=== PATIENT | female | born 1995 | race American Indian/Alaskan Native ===

== ENCOUNTER 2019-11-16 14:09 | Emergency (ER) | payer SELFPAY ==
--- NOTE | 2019-11-16 14:18 | Emergency Department Report ---
Chief Complaint: Dental/Oral Stated Complaint: TOOTH PAIN - HPI History of Present Illness: Ms. Dixon has impacted wisdom teeth which need to be removed. No infection. No facial or gum swelling. Frustrated that she can not get a referral to oral surgeon. Pain has improved with Naproxen. MSe complete MSE screening note: Focused history and physical exam performed. Due to findings the following was ordered: ED Disposition for MSE Clinical Impression: Pain, dental Disposition: Z MED SCREENING EXAM-LEFT Is pt being admited?: No Does the pt Need Aspirin: No Condition: Stable
== END 2019-11-16 14:20 | disposition left against medical advice (07) ==
LOC: ED 14:09
DX: K08.89 Other specified disorders of teeth and supporting structures (principal)
CPT/HCPCS: 99281

== ENCOUNTER 2021-05-14 11:55 | Emergency (ER) | payer OTHER ==
[2021-05-14 12:12] VITALS: BP 116/71
--- NOTE | 2021-05-14 12:41 | Emergency Department Report ---
ED Female HPI - General Chief complaint: Vaginal Bleeding Stated complaint: POSS MISCARRIAGE Time Seen by Provider: 05/14/21 12:33 Source: patient Mode of arrival: Ambulatory Limitations: No Limitations - History of Present Illness Initial comments: Patient is a 25-year-old female presents emergency room with complaints of concern for a miscarriage. She states last night that she wiped and she noticed a tissue-like substance on the toilet paper. She denies any vaginal bleeding, lower abdominal pain, cramping, back pain. She states that her last menstrual cycle was March 24, 2021. She states that this would be her first . She states that she took 6 at home test 2 weeks ago and reports it was positive. She states that she has not yet seen her [facility] but has an upcoming appointment later this week. She denies any fever, diarrhea, urinary symptoms. No past medical history. Allergy to penicillin. - Related Data Previous Rx's Medication Instructions Recorded Last Taken Type Ciprofloxacin HCl [Ciloxan] 2 drops OP Q6H #5 ml 03/18/21 Unknown Rx Ibuprofen [Motrin] 800 mg PO Q8HR PRN #30 tablet 03/18/21 Unknown Rx Allergies Allergy/AdvReac Type Severity Reaction Status Date / Time Penicillins Allergy Rash Verified 03/17/21 20:39 ED Review of Systems ROS: Stated complaint: POSS MISCARRIAGE Other details as noted in HPI Comment: All other systems reviewed and negative ED Past Medical Hx - Past Medical History Previous Medical History?: No - Surgical History Past Surgical History?: No - Social History Smoking Status: Never Smoker - Medications Home Medications: Home Medications Medication Instructions Recorded Confirmed Last Taken Type Ciprofloxacin HCl [Ciloxan] 2 drops OP Q6H #5 ml 03/18/21 Unknown Rx Ibuprofen [Motrin] 800 mg PO Q8HR PRN #30 tablet 03/18/21 Unknown Rx ED Physical Exam - General Limitations: No Limitations General appearance: alert, in no apparent distress - Head Head exam: Present: atraumatic, normocephalic - Eye Eye exam: Present: normal appearance - ENT ENT exam: Present: mucous membranes moist - Respiratory Respiratory exam: Present: normal lung sounds bilaterally. Absent: respiratory distress, wheezes, rales, rhonchi, stridor, chest wall tenderness, accessory muscle use, decreased breath sounds, prolonged expiratory - Cardiovascular Cardiovascular Exam: Present: regular rate, normal rhythm, normal heart sounds. Absent: systolic murmur, diastolic murmur, rubs, gallop - GI/Abdominal GI/Abdominal exam: Present: soft, normal bowel sounds. Absent: distended, tenderness, guarding, rebound, rigid - Neurological Exam Neurological exam: Present: alert, oriented X3 - Psychiatric Psychiatric exam: Present: normal affect, normal mood - Skin Skin exam: Present: warm, dry, intact ED Course Vital Signs 05/14/21 05/14/21 12:11 15:47 Temperature 97.8 F Pulse Rate 80 78 Respiratory 18 16 Rate Blood Pressure 116/71 O2 Sat by Pulse 98 98 Oximetry ED Medical Decision Making - Lab Data Result diagrams: 05/14/21 12:59 05/14/21 12:59 Lab Results 05/14/21 05/14/21 05/14/21 Range/Units 12:55 12:59 12:59 WBC 7.3 (4.5-11.0) K/mm3 RBC 4.47 (3.65-5.03) M/mm3 Hgb 14.2 (10.1-14.3) gm/dl Hct 42.1 (30.3-42.9) % MCV 94 (79-97) fl MCH 32 (28-32) pg MCHC 34 (30-34) % RDW 13.3 (13.2-15.2) % Plt Count 281 (140-440) K/mm3 Lymph % (Auto) Not Reportable [place] % (Auto) Not Reportable Eos % (Auto) Not Reportable Baso % (Auto) Not Reportable Lymph # (Auto) Not Reportable [place] # (Auto) Not Reportable Eos # (Auto) Not Reportable Baso # (Auto) Not Reportable Seg Neutrophils # Not Reportable Sodium 135 L (137-145) mmol/L Potassium 4.2 (3.6-5.0) mmol/L Chloride 103.0 (98-107) mmol/L Carbon Dioxide 21 L (22-30) mmol/L Anion Gap 15 mmol/L BUN 8 (7-17) mg/dL Creatinine 0.6 (0.6-1.2) mg/dL Estimated GFR > 60 ml/min BUN/Creatinine Ratio 13 % Glucose 89 (65-100) mg/dL Calcium 8.7 (8.4-10.2) mg/dL HCG, Quant (0-4) mIU/mL Urine Color (Yellow) Urine Turbidity (Clear) Urine pH (5.0-7.0) Ur Specific [place] (1.003-1.030) Urine Protein (Negative) mg/dL Urine Glucose (UA) (Negative) mg/dL Urine Ketones (Negative) mg/dL Urine Blood (Negative) Urine Nitrite (Negative) Urine Bilirubin (Negative) Urine Urobilinogen (<2.0) mg/dL Ur Leukocyte Esterase (Negative) Urine WBC (Auto) (0.0-6.0) /HPF Urine RBC (Auto) (0.0-6.0) /HPF U Epithel Cells (Auto) (0-13.0) /HPF Urine Bacteria (Auto) (Negative) /HPF Urine Mucus /HPF Urine HCG, Qual (Negative) Blood Type O POSITIVE 05/14/21 05/14/21 Range/Units 12:59 Unknown WBC (4.5-11.0) K/mm3 RBC (3.65-5.03) M/mm3 Hgb (10.1-14.3) gm/dl Hct (30.3-42.9) % MCV (79-97) fl MCH (28-32) pg MCHC (30-34) % RDW (13.2-15.2) % Plt Count (140-440) K/mm3 Lymph % (Auto) [place] % (Auto) Eos % (Auto) Baso % (Auto) Lymph # (Auto) [place] # (Auto) Eos # (Auto) Baso # (Auto) Seg Neutrophils # Sodium (137-145) mmol/L Potassium (3.6-5.0) mmol/L Chloride (98-107) mmol/L Carbon Dioxide (22-30) mmol/L Anion Gap mmol/L BUN (7-17) mg/dL Creatinine (0.6-1.2) mg/dL Estimated GFR ml/min BUN/Creatinine Ratio % Glucose (65-100) mg/dL Calcium (8.4-10.2) mg/dL HCG, Quant 40364 H (0-4) mIU/mL Urine Color Yellow (Yellow) Urine Turbidity Slightly-cloudy (Clear) Urine pH 6.0 (5.0-7.0) Ur Specific [place] 1.021 (1.003-1.030) Urine Protein <15 mg/dl (Negative) mg/dL Urine Glucose (UA) Neg (Negative) mg/dL Urine Ketones Neg (Negative) mg/dL Urine Blood Neg (Negative) Urine Nitrite Neg (Negative) Urine Bilirubin Neg (Negative) Urine Urobilinogen 4.0 (<2.0) mg/dL Ur Leukocyte Esterase Tr (Negative) Urine WBC (Auto) 3.0 (0.0-6.0) /HPF Urine RBC (Auto) 1.0 (0.0-6.0) /HPF U Epithel Cells (Auto) 17.0 H (0-13.0) /HPF Urine Bacteria (Auto) 1+ (Negative) /HPF Urine Mucus Few /HPF Urine HCG, Qual Positive A (Negative) Blood Type - Radiology Data Radiology results: report reviewed [facility] OBSTETRIC ULTRASOUND ULTRASOUND OB TRANSVAGINAL HISTORY: , vaginal bleeding, passed tissue like substance COMPARISON: None. TECHNIQUE: Routine transabdominal and transvaginal OB ultrasound performed. FINDINGS: Uterus: Mildly enlarged measuring 9.6 x 4.8 x 6.7 cm. Gestational Sac: Well-defined oval shape and intrauterine in location. Yolk Sac: Normal in appearance. Fetus/Embryo: [place]-rump length of 0.4 cm, corresponding to an estimated gestational age of 6 weeks 1 day.EDC: 01/06/2022. Embryonic/ anatomy is too small for evaluation. Embryonic/ cardiac activity: 107bpm Placenta: Too small for evaluation. Amniotic fluid volume: Subjectively appropriate for gestational age. Ovaries: The right ovary is normal in size and appearance with normal blood flow, measuring 5.1 x 2.3 x 2.8 cm. The left ovary is normal in size and appearance with normal blood flow, measuring 2.1 x 1.2 x 2.0 cm. Hypoechoic space-occupying mass in the right ovary with peripheral vascularity is most likely the corpus luteum. Additional findings: None. IMPRESSION Early intrauterine as described. No acute abnormality is detected. Probable corpus luteum cyst in the right ovary. Signer Name: Collin Maher Jr, MD Signed: 05/14/2021 1:39 PM Workstation Name: [id number] - Medical Decision Making Patient is a 25-year-old female presents emergency room with complaints of concern for a miscarriage. She states last night that she wiped and she noticed a tissue-like substance on the toilet paper. She denies any vaginal bleeding, lower abdominal pain, cramping, back pain. She states that her last menstrual cycle was March 24, 2021. She states that this would be her first . She states that she took 6 at home test 2 weeks ago and reports it was positive. She states that she has not yet seen her [facility] but has an upcoming appointment later this week. She denies any fever, diarrhea, urinary symptoms. No past medical history. Allergy to penicillin. Vitals are normal. No abdominal tenderness on exam, no guarding, no rebound, no rigidity, normal soun ds, [place] [address], otherwise labs are stable. pt is Rh positive. UA shows many epithelial cells, likely due to contamination, no significant signs of UTI. OB US: IMPRESSION Early intrauterine as described. No acute abnormality is detected. Probable corpus luteum cyst in the right ovary. Discussed all results with patient answer questions. Advised patient Please practice pelvic rest, no sexual intercourse, no douching, no tampons. Increase your water intake. May take Tylenol as needed for any discomfort. Please take a vitamin [id number]. Return to emergency room for any new or worsening symptoms. Critical care attestation.: If time is entered above; I have spent that time in minutes in the direct care of this critically ill patient, excluding procedure time. ED Disposition Clinical Impression: Early stage of Disposition: DC-01 TO HOME OR SELFCARE Is pt being admited?: No Does the pt Need Aspirin: No Condition: Stable Additional Instructions: Please practice pelvic rest, no sexual intercourse, no douching, no tampons. Increase your water intake. May take Tylenol as needed for any discomfort. Please take a vitamin [id number]. Return to emergency room for any new or worsening symptoms. Referrals: PRIMARY CARE,MD [Primary Care Provider] - 2-3 Days your, society reporter [Other] - 2-3 Days Time of Disposition: 15:35 Print Language: JAMAICAN
[2021-05-14 12:44] LABS: Bacteria,Urine 1+ /HPF (Negative); Bilirubin,Urine NEG (Negative); Blood,Urine NEG (Negative); Color,Urine Yellow (Yellow); Mucus,Urine FEW /HPF; Protein,Urine <15 mg/dL mg/dL (Negative)
[2021-05-14 12:45] LABS: HCG Qualitative,Urine Positive (Negative)
[2021-05-14 13:43] LABS: Hematocrit 42.1 % (30.3-42.9); Hemoglobin 14.2 gm/dl (10.1-14.3); Mean Corpuscular HGB Conc 34 % (30-34); Mean Corpuscular Volume 94 fl (79-97); Platelet Count 281 K/mm3 (140-440); Red Blood Count 4.47 M/mm3 (3.65-5.03); Red Cell Distribution Width 13.3 % (13.2-15.2)
[2021-05-14 13:59] LABS: Blood Urea Nitrogen 8 mg/dL (7-17); Calcium 8.7 mg/dL (8.4-10.2); Hemolysis Index 3
[2021-05-14 14:30] LABS: BUN/Creatinine Ratio 13
--- NOTE | 2021-05-15 07:57 | Ultrasound Report ---
[facility]ST[facility] ULTRASOUND ULTRASOUND OB TRANSVAGINAL HISTORY: , vaginal bleeding, passed tissue like substance COMPARISON: None. TECHNIQUE: Routine transabdominal and transvaginal OB ultrasound performed. FINDINGS: Uterus: Mildly enlarged measuring 9.6 x 4.8 x 6.7 cm. Gestational Sac: Well-defined oval shape and intrauterine in location. Yolk Sac: Normal in appearance. Fetus/Embryo: [place]-rump length of 0.4 cm, corresponding to an estimated gestational age of 6 weeks 1 day.EDC: 01/06/2022. Embryonic/ anatomy is too small for evaluation. Embryonic/ cardiac activity: 107bpm Placenta: Too small for evaluation. Amniotic fluid volume: Subjectively appropriate for gestational age. Ovaries: The right ovary is normal in size and appearance with normal blood flow, measuring 5.1 x 2. 3 x 2.8 cm. The left ovary is normal in size and appearance with normal blood flow, measuring 2.1 x 1.2 x 2.0 cm. Hypoechoic space-occupying mass in the right ovary with peripheral vascularity is most likely the corpus luteum. Additional findings: None. IMPRESSION Early intrauterine as described. No acute abnormality is detected. Probable corpus luteum cyst in the right ovary. Signer Name: Collin Maher Jr, MD Signed: 05/14/2021 2:39 PM Workstation Name: [id number]
== END 2021-05-14 15:47 | disposition home or self-care (01) ==
LOC: ED 11:55
DX: Z34.90 Encounter for supervision of normal pregnancy, unspecified, unspecified trimester (principal); Z88.0 Allergy status to penicillin; Z79.899 Other long term (current) drug therapy
CPT/HCPCS: 36415; 76801; 76817; 80048; 81001; 81025; 84702; 85025; 86900; 86901

== ENCOUNTER 2021-10-28 14:00 | Emergency (ER) | payer OTHER ==
--- NOTE | 2021-10-28 14:22 | Emergency Department Report ---
HPI - General Chief Complaint: Upper Respiratory Infection Time Seen by Provider: 10/28/21 14:10 - HPI HPI: 25-year-old female presents to the emergency department with a complaint of a 1 day history of shortness of breath, palpitations, cough and itchy throat. The patient is 31 weeks and also came in with concern for the as she says that the baby has been moving "more than usual" but she says that she has been having some pelvic cramping and pain. With this she is G1, P0. She follows with Dr. Joelle Isbell at [facility]. She otherwise denies any past medical history. Last night she took some children's Tylenol and cold medication. She says that she has a few family members who have some nonspecific cold symptoms. She is not vaccinated for COVID-19. No recent travel or sick contacts at home. She denies any fever, chills, lower extremity swelling, diarrhea, dysuria, vaginal bleeding or discharge, back pain or diaphoresis. ED Past Medical Hx - Social History Smoking Status: Never Smoker - Medications Home Medications: Home Medications Medication Instructions Recorded Confirmed Last Taken Type Ciprofloxacin HCl [Ciloxan] 2 drops OP Q6H #5 ml 03/18/21 Unknown Rx Ibuprofen [Motrin] 800 mg PO Q8HR PRN #30 tablet 03/18/21 Unknown Rx ED Review of Systems ROS: Stated complaint: FLU LIKE S/S 31 WK Other details as noted in HPI Comment: All other systems reviewed and negative Constitutional: denies: chills, fever Eyes: denies: eye pain, vision change ENT: denies: ear pain, throat pain Respiratory: cough, shortness of breath Cardiovascular: palpitations. denies: chest pain Gastrointestinal: denies: abdominal pain, vomiting Genitourinary: denies: dysuria, discharge Musculoskeletal: myalgia. denies: joint swelling Skin: denies: rash, lesions Neurological: denies: headache, numbness, paresthesias Physical Exam - Physical Exam Vital Signs: Vital Signs 10/28/21 14:07 Temperature 98.4 F Pulse Rate 107 H Respiratory 20 Rate Blood Pressure 124/70 O2 Sat by Pulse 100 Oximetry Physical Exam: GENERAL: The patient is well-developed well-nourished. HENT: Normocephalic. Atraumatic. Patient has moist mucous membranes. EYES: Extraocular motions are intact. NECK: Supple. Trachea is midline. CHEST/LUNGS: Clear to auscultation. Occasional dry cough heard during examination. No tachypnea or conversational dyspnea. HEART/CARDIOVASCULAR: Regular. There is no tachycardia. There is no murmur. ABDOMEN: Abdomen is soft, nontender. Patient has normal bowel sounds. SKIN: Skin is warm and dry. NEURO: The patient is awake, alert, and oriented. The patient is cooperative. Normal speech. MUSCULOSKELETAL: There is no tenderness or deformity. There is no limitation range of motion. ED Course Vital Signs 10/28/21 14:07 Temperature 98.4 F Pulse Rate 107 H Respiratory 20 Rate Blood Pressure 124/70 O2 Sat by Pulse 100 Oximetry ED Medical Decision Making - Lab Data Result diagrams: 10/28/21 14:25 10/28/21 14:25 - EKG Data -: EKG Interpreted by Me EKG shows normal: sinus rhythm, axis, intervals, QRS complexes, ST-T waves Rate: tachycardia (102 bpm) - EKG Data When compared to previous EKG there are: previous EKG unavailable Interpretation: normal EKG - Radiology Data Radiology results: report reviewed, image reviewed interpreted by me: Chest x-ray does not show any acute process. There are no pleural effusions, obvious pneumonia and there is no pneumothorax. No widened mediastinum. US OB follow up INDICATION: , pelvic pain. TECHNIQUE: Transabdominal. COMPARISON: None available. FINDINGS: There is a single intrauterine . Biparietal Diameter = 7.7 cm Head Circumference = 28.8 cm Abdominal Circumferen ce = 27 cm Femur Length = 5.9 cm Heart Rate: 171 beats per minute. Estimated Weight in grams (if calculated): 1671 Estimated Weight Growth Percentile (if calculated): 32% Position: cephalic. Placenta: Anterior and free of the os. Amniotic Fluid Volume: normal Amniotic F luid Index (SHAHLA) in cm (if calculated): 17.5. Maternal Adnexa: No significant abnormality. IMPRESSION: 1. Single, living intrauterine with estimated sonographic age of 31 weeks, 1 day(s). - Medical Decision Making This patient presents to the emergency department with a complaint of some shortness of breath, cough, itchy throat, palpitations that she says has been going on since yesterday. She was also exposed to 2 other individuals who have URI type symptoms. The patient is 31 weeks and says that she has been having some pelvic cramping pain without vaginal bleeding. On examination she has normal sounding heart and lungs to auscultation. The patient appears slightly anxious but otherwise does not appear in any respiratory or acute distress. Abdomen is soft but there is a palpable gravid uterus. Chest x-ray does not show any pneumonia, pleural effusions, pneumothorax, wide mediastinum, or any other acute process. ultrasound shows a live intrauterine at about 31 weeks. Patient's vital signs of been reassuring throughout her ED course including being afebrile. The patient is unvaccinated and says that she has been exposed to individuals with viral URI type symptoms. The patient has remained with 100% oxygen saturation without any supplemental oxygen. Chest x-ray did not show any pneumonia. She does not appear to require a medical admission at this time. I am unable to test her for COVID-19 we discussed seeking outpatient COVID-19 treatment. She has been reevaluated multiple times over about 2.5 hours and is feeling improved. She has been instructed to follow-up with primary care and [facility]. She will return to the emergency department with any worsening of her symptoms or with any acute distress. Critical Care Time: No Critical care attestation.: If time is entered above; I have spent that time in minutes in the direct care of this critically ill patient, excluding procedure time. ED Disposition Clinical Impression: Upper respiratory infection Qualifiers: URI type: unspecified URI Qualified Code(s): J06.9 - Acute upper respiratory infection, unspecified Qualifiers: Weeks of gestation: 31 weeks Qualified Code(s): Z3A.31 - 31 weeks gestation of Disposition: 01 HOME / SELF CARE / HOMELESS Is pt being admited?: No Condition: Stable Instructions: Third Trimester of , Viral Respiratory Infection Additional Instructions: Please follow-up with your primary care physician and [facility] in the next few d ays. Your symptoms appear consistent with a viral upper respiratory infection. Unfortunately I am unable to test you for COVID-19 at this time. I do recommend outpatient COVID-19 testing. This can be done at some primary care offices, some urgent cares, or there should be a listing of testing facilities through the [facility]. Return to the emergency department with any worsening of your symptoms, new or concerning symptoms not addressed during this current emergency department visit, or with any acute distress. Referrals: PRIMARY CARE, [Primary Care Provider] - 3-5 Days [facility]BG[facility], [facility] [Other] - 3-5 Days Time of Disposition: 16:17
[2021-10-28 14:52] LABS: Basophils % (Auto) 0.6 % (0.0-1.8); Eosinophils # (Auto) 0.2 K/mm3 (0.0-0.4); Eosinophils % (Auto) 2.7 % (0.0-4.3); Hematocrit 34.8 % (30.3-42.9); Hemoglobin 11.9 gm/dl (10.1-14.3); Lymphocytes # (Auto) 0.3 K/mm3 (1.2-5.4); Lymphocytes % (Auto) 6.1 % (13.4-35.0); Mean Corpuscular HGB Conc 34 % (30-34); Mean Corpuscular Volume 92 fl (79-97); Monocytes # (Auto) 0.6 K/mm3 (0.0-0.8); Monocytes % (Auto) 10.8 % (0.0-7.3); Platelet Count 217 K/mm3 (140-440); Red Blood Count 3.79 M/mm3 (3.65-5.03)
[2021-10-28 15:15] LABS: Blood Urea Nitrogen 5 mg/dL (7-17); Calcium 8.8 mg/dL (8.4-10.2); Hemolysis Index 6
[2021-10-28 15:18] LABS: BUN/Creatinine Ratio 10
--- NOTE | 2021-10-28 15:36 | Ultrasound Report ---
US OB follow up INDICATION: , pelvic pain. TECHNIQUE: Transabdominal. COMPARISON: None available. FINDINGS: There is a single intrauterine . Biparietal Diameter = 7.7 cm Head Circumference = 28.8 cm Abdominal Circumference = 27 cm Femur Length = 5.9 cm Heart Rate: 171 beats per minute. Estimated Weight in grams (if calculated): 1671 Estimated Weight Growth Percentile (if calculated): 32% Position: cephalic. Placenta: Anterior and free of the os. Amniotic Fluid Volume: normal Amniotic Fluid Index (SHAHLA) in cm (if calculated): 17.5. Maternal Adnexa: No significant abnormality. IMPRESSION: 1. Single, living intrauterine with estimated sonographic age of 31 weeks, 1 day(s). Signer Name: Adama Davila MD Signed: 10/28/2021 3:31 PM Workstation Name: [id number]
--- NOTE | 2021-10-28 16:04 | XRay Report ---
CHEST 1 VIEW 10/28/2021 3:39 PM INDICATION / CLINICAL INFORMATION: SOB. COMPARISON: None available. FINDINGS: SUPPORT DEVICES: None. HEART / MEDIASTINUM: No significant abnormality. LUNGS / PLEURA: No significant pulmonary or pleural abnormality. No pneumothorax. ADDITIONAL FINDINGS: No significant additional findings. IMPRESSION: 1. No acute findings. Signer Name: Quintin Dey MD Signed: 10/28/2021 3:59 PM Workstation Name: [id number]
[2021-10-28 16:26] VITALS: BP 108/68
--- NOTE | 2021-10-29 10:01 | Electrocardiograph Report ---
[facility] Test Date: 2021-10-28 Test Time: 14:49:31 Pat Name: BILLY MOORE Department: Room: Gender: F Big Data Software Engineer: [email or web address] : [id number] Requested By: ZORAIDA BARBER Order Number: [id number] Reading MD: Tung Hitchcock Measurements Intervals [place] Rate: 102 P: 45 MA: 147 QRS: 23 QRSD: 82 T: -2 QT: 331 QTc: 433 Interpretive Statements Sinus tachycardia No previous ECG available for comparison Electronically Signed On 10-29-2021 10:00:40 EST by Tung Hitchcock
== END 2021-10-28 16:26 | disposition home or self-care (01) ==
LOC: ED 14:00
DX: O99.513 Diseases of the respiratory system complicating pregnancy, third trimester (principal); Z3A.31 31 weeks gestation of pregnancy
CPT/HCPCS: 36415; 71045; 76816; 80048; 84443; 85025; 93005; 99284